=== PATIENT | female | born 1970 | race Hispanic/Latino ===

== ENCOUNTER 2017-10-26 14:37 | Outpatient (CLI) | payer OTHER ==
--- NOTE | 2017-10-27 10:47 | MRI ---
MRI LEFT SHOULDER WITHOUT CONTRAST: Date: 10/26/17 INDICATION: Left shoulder pain. FINDINGS: There is linear abnormality seen along the superior glenoid labrum extending from approximately the 2 to 11 o'clock position consistent with a Type II SLAP tear. There is no overt evidence of tear exten kassi to biceps anchor or proximal long head of biceps tendon. Glenohumeral articular surface is danette l appearing. The rotator cuff is intact. There is some mild tendinosis of the supraspinatus. AC joint normal. No muscular atrophy is evident. There is a Type II acromion. No os acromiale is evident. Vis ualized aspects of the pectoralis major appear within normal limits. Visualized aspects of the deltoi d appear within normal limits. There is some subcutaneous edema overlying the posterior aspect of the left shoulder, which is nonspecific and may be related to injection site. This could also be related to focal contusion. IMPRESSION: 1. Type II SLAP tear. 2. Mild supraspinatus tendinosis. 3. Subcutaneous edema involving the posterior aspect of the shoulder joint may be related to injecti on site or possibly contusion. Recommend correlation clinically. POS: MITCHELL
== END 2017-10-26 14:38 | disposition home or self-care (01) ==
LOC: SCSMRI 14:37
PROVIDERS: ATTEND Family Medicine
DX: M75.102 Unspecified rotator cuff tear or rupture of left shoulder, not specified as traumatic (principal); S43.492A Other sprain of left shoulder joint, initial encounter; M75.82 Other shoulder lesions, left shoulder; R60.0 Localized edema

== ENCOUNTER 2017-11-16 13:39 | Outpatient (CLI) | payer OTHER | END 2017-11-16 13:40 | disposition home or self-care (01) | LOC: BICMAMMO 13:39 | PROVIDERS: ATTEND Family Medicine | DX: Z12.31 Encounter for screening mammogram for malignant neoplasm of breast (principal) | CPT/HCPCS: 77063; 77067 ==

== ENCOUNTER 2018-06-16 21:17 | Emergency (ER) | payer OTHER ==
[2018-06-16] MEDS ORDERED: Cephalexin 250 MG CAP ONE (22:57)
== END 2018-06-16 23:01 | disposition home or self-care (01) ==
LOC: SCSER 21:17
DX: H60.11 Cellulitis of right external ear (principal); E03.9 Hypothyroidism, unspecified; F32.9 Major depressive disorder, single episode, unspecified; Z79.899 Other long term (current) drug therapy
CPT/HCPCS: 99282

== ENCOUNTER 2018-11-22 14:02 | Outpatient (CLI) | payer OTHER ==
--- NOTE | 2018-11-22 15:00 | MMO ---
Bilateral MAMMO Bilat Screen [id number]. CLINICAL HISTORY: Patient is 48 years old and is seen for screening. The patient has no family history of breast cancer. The patient has no personal history of cancer. VIEWS: The views performed were: bilateral craniocaudal with tomosynthesis and bilateral mediolateral oblique with tomosynthesis. FILMS COMPARED: The present examination has been compared to a prior imaging study performed at [facility] on 11/16/2017. This study has been interpreted with the assistance of computer-aided detection. MAMMOGRAM FINDINGS: The breasts are heterogeneously dense, which could obscure a lesion on mammography. There are no suspicious masses, suspicious calcifications, or new areas of architectural distortion. IMPRESSION: THERE IS NO MAMMOGRAPHIC EVIDENCE OF MALIGNANCY. A ROUTINE FOLLOW-UP MAMMOGRAM IN 1 YEAR IS RECOMMENDED. THE RESULTS OF THIS EXAM WERE SENT TO THE PATIENT. ACR BI-RADS Category 1 - Negative MAMMOGRAPHY NOTE: 1. A negative mammogram report should not delay a biopsy if a dominant of clinically suspicious mass is present. 2. Approximately 10% to 15% of breast cancers are not detected by mammography. 3. Adenosis and dense breasts may obscure an underlying neoplasm. Reported by: JEN PERDUE MD Electonically Signed: [id number]
== END 2018-11-22 14:03 | disposition home or self-care (01) ==
LOC: BICMAMMO 14:02
PROVIDERS: ATTEND Family Medicine
DX: Z12.31 Encounter for screening mammogram for malignant neoplasm of breast (principal)
CPT/HCPCS: 77063; 77067